=== PATIENT | male | born 2000 | race Hispanic/Latino ===

== ENCOUNTER 2019-11-30 18:17 | Emergency (ER) | payer BC, MEDICAID ==
[2019-11-30 18:31] VITALS: TEMP 98.4; O2SAT 98
[2019-11-30] MEDS ORDERED: KETOROLAC TROMETHAMINE INJ 30 MG/ML VIAL IV ONE (18:32)
--- NOTE | 2019-11-30 18:33 | ED.PDOC ---
History of Present Illness - General Chief Complaint: Abdominal Pain Stated Complaint: left upper abdominal pain Time Seen by Provider: 11/30/19 18:18 Information Source: patient, RN notes reviewed, Vital Signs reviewed, old records Exam Limitations: no limitations - History of Present Illness Initial Comments: 19 yo M comes in with LUQ abdominal pain x 2 days. States it started when he was running. Worse with movement. no pain with deep breaths, no cough. Has not tried anything for pain. no n/v/d. no dysuria or back pain. Review of Systems - Review of Systems Constitutional: Denies: chills, fever EENTM: Denies: blurred vision, ear discharge Respiratory: Denies: cough, short of breath Cardiology: Denies: chest pain, palpitations Gastrointestinal/Abdominal: States: abdominal pain. Denies: constipation, diarrhea, nausea, vomiting Genitourinary: Denies: discharge, frequency Musculoskeletal: Denies: back pain, joint pain, muscle pain, neck pain Skin: Denies: rash Neurological: Denies: headache, numbness, paresthesia Endocrine: Denies: unexplained weight gain, unexplained weight loss Hematologic/Lymphatic: Denies: blood clots, easy bleeding, easy bruising Past Medical History (General) - Patient Medical History Hx Seizures: No Hx Stroke: No Hx Dementia: No Hx Asthma: No Hx of COPD: No Hx Cardiac Disorders: No Hx Congestive Heart Failure: No Hx Pacemaker: No Hx Hypertension: No Hx Thyroid Disease: No Hx Diabetes: No Hx Gastroesophageal Reflux: No Hx Renal Disease: No Hx Cancer: No Hx of HIV: No Hx Hepatitis B: No Hx Hepatitis C: No Hx MRSA: No Hx Other PMH: No Surgical History: appendectomy, tonsillectomy - Vaccination History Hx Influenza Vaccination: No - Social History Hx Tobacco Use: Yes - vapes Family Medical History - Family History Father Family History: Unknown Living Status: Unknown Physical Exam - Physical Exam General Appearance: Alert, Comfortable, No apparent distress, Well Developed, Well Groomed, Well Hydrated, Well Nourished Eyes, Ears, Nose, Throat Exam: PERRL/EOMI, normal ENT inspection, TMs normal Neck: non-tender, full range of motion, supple, normal inspection Respiratory: chest non-tender, lungs clear, normal breath sounds, no respiratory distress, no accessory muscle use Cardiovascular/Chest: normal peripheral pulses, regular rate, rhythm, no edema, no gallop, no JVD, no murmur Peripheral Pulses: 2+ Gastrointestinal/Abdominal: normal bowel sounds, non tender, soft, no organomegaly, no pulsatile mass Rectal Exam: deferred Back Exam: normal inspection, no CVA tenderness, no vertebral tenderness Extremity: normal range of motion, non-tender, normal inspection, no pedal edema, no calf tenderness, normal capillary refill Neurologic: geriatrician II-XII nml as tested, no motor/sensory deficits, alert, normal mood/affect, oriented x 3 Skin Exam: normal color, warm/dry Special Observations: No evidence of discomfort, Using mobile device Progress - Progress Progress: 11/30/19 18:35 partial ddx: gastritis, muscle strain, pancreatitis. Will get blood work. VSS. Will give IV toradol. 11/30/19 19:[address] showed: SLIGHT INCREASED DENSITY WITHIN THE CALYCEAL SYSTEM BILATERALLY PERHAPS SUGGESTING EARLY STONE FORMATION. NO DEFINITIVE EVIDENCE FOR NEPHROLITHIASIS AND/OR HYDRONEPHROSIS. Patient is aware of these findings. - Results/Orders Results/Orders: 11/30/19 19:07 Abdoment/Pelvis w/o Contrast [CT] Stat Laboratory Results WBC 8.2 K/mm3 (4.8-10.8) 11/30/19 18:45 RBC 5.28 M/mm3 (4.70-6.10) 11/30/19 18:45 Hgb 16.1 gm/dL (14.0-18.0) 11/30/19 18:45 Hct 47.1 % (42.0-52.0) 11/30/19 18:45 MCV 89.1 fl (80.0-94.0) 11/30/19 18:45 MCH 30.5 pg (27.0-31.0) 11/30/19 18:45 MCHC 34.2 g/dL (33.0-37.0) 11/30/19 18:45 RDW 12.7 % (11.5-14.5) 11/30/19 18:45 Plt Count 292 K/mm3 (130-400) 11/30/19 18:45 MPV 8.3 fl (7.40-10.4) 11/30/19 18:45 Absolute Neuts (auto) 4.10 K/uL (1.8-6.8) 11/30/19 18:45 Absolute Lymphs (auto) 3.10 K/uL (1.0-3.4) 11/30/19 18:45 Absolute Monos (auto) 0.70 K/uL (0.2-0.8) 11/30/19 18:45 Absolute Eos (auto) 0.20 K/uL (0.0-0.4) 11/30/19 18:45 Absolute Basos (auto) 0.10 K/uL (0.0-0.1) 11/30/19 18:45 Neutrophils % 50.3 % (42.0-78.0) 11/30/19 18:45 Lymphocytes % 37.5 % (20.0-50.0) 11/30/19 18:45 Monocytes % 9.1 % (2.0-9.0) H 11/30/19 18:45 Eosinophils % 2.4 % (1.0-5.0) 11/30/19 18:45 Basophils % 0.7 % (0.0-2.0) 11/30/19 18:45 Sodium 139 mmol/L (135-145) 11/30/19 18:45 Potassium 4.1 mmol/L (3.6-5.0) 11/30/19 18:45 Chloride 102 mmol/L (101-111) 11/30/19 18:45 Carbon Dioxide 29 mmol/L (21-31) 11/30/19 18:45 Anion Gap 12.1 (12-18) 11/30/19 18:45 BUN 20 mg/dL (7-18) H 11/30/19 18:45 Creatinine 1.21 mg/dL (0.6-1.3) 11/30/19 18:45 BUN/Creatinine Ratio 16.5 (10-20) 11/30/19 18:45 Random Glucose 93 mg/dL (70-105) 11/30/19 18:45 Serum Osmolality 279.8 mOsm/L (275-295) 11/30/19 18:45 Calcium 9.3 mg/dL (8.4-10.2) 11/30/19 18:45 Total Bilirubin 0.7 mg/dL (0.2-1.0) 11/30/19 18:45 AST 34 IU/L (10-42) 11/30/19 18:45 ALT 28 IU/L (10-60) 11/30/19 18:45 Alkaline Phosphatase 51 IU/L (42-121) 11/30/19 18:45 Serum Total Protein 7.4 gm/dL (6.4-8.2) 11/30/19 18:45 Albumin 4.8 g/dl (3.2-5.5) 11/30/19 18:45 Globulin 2.6 gm/dL (2.3-3.5) 11/30/19 18:45 Albumin/Globulin Ratio 1.8 (1.1-1.9) 11/30/19 18:45 Lipase 30 U/L (22-51) 11/30/19 18:45 Urine Color Yellow (Yellow) 11/30/19 18:48 Urine Appearance Clear (Clear) 11/30/19 18:48 Urine pH 7.5 (4.5-7.8) 11/30/19 18:48 Ur Specific [place] 1.020 (1.005-1.030) 11/30/19 18:48 Urine Protein Negative mg/dL 11/30/19 18:48 Urine Glucose (UA) Negative mg/dL (Negative) 11/30/19 18:48 Urine Ketones Negative mg/dL (NEGATIVE) 11/30/19 18:48 Urine Blood Trace-intact (Negative) H 11/30/19 18:48 Urine Nitrite Negative 11/30/19 18:48 Urine Bilirubin Negative (NEGATIVE) 11/30/19 18:48 Urine Urobilinogen 0.2 mg/dL (0.2-1.0) 11/30/19 18:48 Ur Leukocyte Esterase Negative (Negative) 11/30/19 18:48 Urine RBC 0-1 /hpf 11/30/19 18:48 Urine WBC 0 /hpf 11/30/19 18:48 Ur Epithelial Cells 0-1 /hpf 11/30/19 18:48 Amorphous Sediment 1+ 11/30/19 18:48 Urine Bacteria 0 11/30/19 18:48 Urine Mucus Trace 11/30/19 18:48 The data reviewed when caring for this patient included: nurse notes, prior records, etc. The history and assessments from nurses notes were reviewed and considered, and the patient's home medication list was also reviewed and considered. My assessment and the results of testing completed here in the ED were discussed with the patient/family. All questions were answered, and they express understanding of my assessment and the plan. They have been instructed to return if their symptoms worsen, and have been asked to follow up with their primary care physician to recheck today's presenting complaint. Strict return precautions given. I have reviewed medication, benefits, alternatives and side effects. Patient decided to proceed with medication. Candi Burton DO #801 - EKG/XRAY/CT CT: abd/pelvis without contrast: no acute pathology Departure - Departure Clinical Impression: Muscle strain Abdominal pain Qualifiers: Abdominal location: left upper quadrant Qualified Code(s): R10.12 - Left upper quadrant pain Time of Disposition: 19:29 Disposition: Discharge to Home or Self Care Departure Forms: ED Discharge - Pt. Copy, Patient Portal Self Enrollment Instructions: DI for Abdominal Pain-Adult, Abdominal Muscle Strain Diet: resume usual diet Activity: increase activity as tolerated Prescriptions: Cyclobenzaprine HCl [Flexeril] 5 mg PO TID PRN #12 tab PRN Reason: Muscle Spasms Ibuprofen 800 mg PO TID PRN #30 tab PRN Reason: Pain Home Medications: Ambulatory Orders Cyclobenzaprine HCl [Flexeril] 5 mg PO TID PRN #12 tab 11/30/19 Ibuprofen 800 mg PO TID PRN #30 tab 11/30/19 Additional Instructions: Magnesium oxide 400mg daily as needed for muscle pain (over the counter in vitamin section)
--- NOTE | 2019-11-30 19:35 | CT ---
EXAM DESCRIPTION: Abdoment/Pelvis w/o Contrast 11/30/2019 7:30 PM CDT CLINICAL HISTORY: 19 years, Male, left upper quad/flank pain COMPARISON: None. PROCEDURE: Multiple transaxial tomograms of the abdomen and pelvis were performed from the lung bases to the symphysis pubis, without administration of IV and oral contrast. Multiplanar reformats in the sagittal and coronal plane were generated and reviewed. An individualized dose optimization technique, Automated Exposure Control, was utilized for the performed procedure. FINDINGS: The lack of IV and oral contrast limits evaluation of solid organs, subtle lesions cannot be excluded. The lung bases demonstrate to be clear. Grossly the unopacified liver, gallbladder, pancreas, spleen and adrenal glands demonstrate to be within normal limits, no significant focal lesions were identified. There is no biliary duct dilatation The kidneys demonstrate grossly unremarkable. Noted is the presence of increased density within the calyceal system of the mid lower pole right kidney and minimally lower pole on left kidney perhaps ingesting the possibility of early stone formation. No definitive calculi is identified in either kidney. No focal masses were demonstrated. The ureters displays normal appearance with normal caliber, no hydroureter was seen. Grossly the unopacified stomach, small bowel and large bowel demonstrate to be within normal limits. Fecal residue and underdistention of the large bowel limits the evaluation. There is no evidence for bowel dilatation and/or free air. The appendix was not visualized although no significant inflammatory changes are noted within the right lower quadrant. The urinary bladder demonstrate to be within normal limits. The prostate gland demonstrate to be within normal limits. Single benign calcification within the posterior aspect of the right prosthetic correspond most likely to a phlebolith. The aorta demonstrate to be within normal limits. There is no retroperitoneal lymphadenopathy. There is no evidence for ascites. The rest of the soft tissue demonstrate to be grossly unremarkable. IMPRESSION: SLIGHT INCREASED DENSITY WITHIN THE CALYCEAL SYSTEM BILATERALLY PERHAPS SUGGESTING EARLY STONE FORMATION. NO DEFINITIVE EVIDENCE FOR NEPHROLITHIASIS AND/OR HYDRONEPHROSIS. Electronically signed by: Michael Talavera MD 11/30/2019 7:33 PM CDT
[2019-11-30] MEDS ORDERED: CYCLOBENZAPRINE TAB (ER DISP) 10 MG TAB PO ONE (19:38)
[2019-11-30 19:51] VITALS: BP 124/72
== END 2019-11-30 19:51 | disposition home or self-care (01) ==
LOC: ER 18:17
DX: T14.8XXA Other injury of unspecified body region, initial encounter (principal); R10.12 Left upper quadrant pain; F17.290 Nicotine dependence, other tobacco product, uncomplicated; X58.XXXA Exposure to other specified factors, initial encounter; Y92.9 Unspecified place or not applicable
CPT/HCPCS: 36415; 74176; 80053; 81001; 83690; 85025; J1885

== ENCOUNTER 2019-12-23 22:16 | Emergency (ER) | payer BC ==
[2019-12-23] MEDS ORDERED: LIDOCAINE 1% 10 ML VIAL INJ ONE ×2 (22:39→23:32)
--- NOTE | 2019-12-23 22:42 | ED.PDOC ---
History of Present Illness - General Time Seen by Provider: 12/23/19 22:39 Additional Information: Patient is a 19-year-old male who presents to the ED with chief complaint of right index finger injury. Patient was bench pressing a heavy weight which she lost control of. As he brought the weight back into the rack somehow his finger got caught between the bar and the rack and he injured his index finger. There are no other injuries. Patient rates the pain as severe. - History of Present Illness Allergies/Adverse Reactions: Allergies NO KNOWN ALLERGY Allergy (Verified 11/30/19 18:31) Home Medications: Ambulatory Orders Acetaminophen W/ Codeine [Tylenol W/ CODEINE #3] 1 ea PO Q6H PRN #20 12/24/19 Amoxicillin & Pot Clavulanate [Augmentin Tab] 875 mg PO BID #20 tab 12/24/19 Ibuprofen 800 mg PO Q8H PRN #20 tab 12/24/19 Review of Systems - Review of Systems Constitutional: Denies: chills, fever Respiratory: Denies: cough, short of breath Cardiology: Denies: chest pain, palpitations Gastrointestinal/Abdominal: Denies: abdominal pain Musculoskeletal: States: see HPI All other Systems: Reviewed and Negative Past Medical History (General) - Patient Medical History Hx Seizures: No Hx Stroke: No Hx Dementia: No Hx Asthma: No Hx of COPD: No Hx Cardiac Disorders: No Hx Congestive Heart Failure: No Hx Pacemaker: No Hx Hypertension: No Hx Thyroid Disease: No Hx Diabetes: No Hx Gastroesophageal Reflux: No Hx Renal Disease: No Hx Cancer: No Hx of HIV: No Hx Hepatitis C: No Hx MRSA: No Surgical History: appendectomy, tonsillectomy - Vaccination History Hx Tetanus, Diphtheria Vaccination: No Hx Influenza Vaccination: No Hx Pneumococcal Vaccination: No - Social History Hx Tobacco Use: No Hx Chewing Tobacco Use: No Hx Alcohol Use: Yes Hx Substance Use: No Hx Substance Use Treatment: No Hx Depression: No Feels Threatened In Home Enviroment: No Feels Threatened In a Relationship: No Hx Physical Abuse: No Hx Emotional Abuse: No Hx Suspected Abuse: No - Female History Patient is a Female of Child Bearing Age (10 -59 yrs old): No - Triage Comment ED Triage Comment: The patient walked under his own power while holding his right hand. He had obvious trauma to his right index finger. The crush/laceration was at the end of the finger nail with tissue undernearh exposed and minor bleeding noted. The patient rated his pain a 10 on the pain scale and had no other obvious signs of injury noted and no other complaints at the time of assessment. Family Medical History - Family History Father Family History: Unknown Living Status: Unknown Physical Exam - Physical Exam General Appearance: Anxious, Obvious distress, Well Developed, Well Nourished Hand Exam: laceration - There is a semicircular laceration around the base of the right index finger nail such that the nail with surrounding skin is able to be lifted off of the finger at its most proximal aspect. Normal sensation to light touch radial and ulnar aspects of finger. Progress - Progress Progress: 12/24/19 00:18 Patient with tuft fracture to the right index finger associated with a 270 degree semicircular laceration around the nailbed. Wound closed with good cosmetic results and Augmentin given in the ED. I have emphasized to patient absolute need for him to continue with antibiotics as prescribed to ensure that he does not develop infection to the finger. I will give referral to a hand doctor. Vital signs stable, patient is NAD and looks clinically well and I believe is safe for discharge with outpatient follow-up. Follow-up instructions, discharge instructions and return to ED precautions discussed with patient. Patient voices understanding and willingness to comply with instructions. All radiographic results have been discussed with the patient, and all questions answered. Patient is happy with plan. Procedures - Laceration/Wound Repair Right Finger Wound Length (cm): 3 Wound's Depth, Shape: flap, nail-avulsed Wound Explored: clean Irrigated w/ Saline (cc's): 100 Betadine Prep?: Yes Anesthesia: 1% Lidocaine Volume Anesthetic (cc's): 15 Wound Repaired With: sutures Suture Size/Type: 4:0 Number of Sutures: 8 Splint Applied?: Yes - metal foam finger splint Progress: Pt tolerated procedure well. Departure - Departure Clinical Impression: Open fracture of tuft of distal phalanx of finger Laceration of finger of right hand Qualifiers: Encounter type: initial encounter Finger: index finger Damage to nail status: without damage Foreign body presence: without foreign body Qualified Code(s): S61.210A - Laceration without foreign body of right index finger without damage to nail, initial encounter Time of Disposition: 00:21 Disposition: Discharge to Home or Self Care Condition: Good Instructions: Laceration Repair, Finger Fracture (DC) Referrals: Gurdeep Interiano MD [Active Staff] - 1-2 Days Prescriptions: Amoxicillin & Pot Clavulanate [Augmentin Tab] 875 mg PO BID #20 tab Ibuprofen 800 mg PO Q8H PRN #20 tab PRN Reason: Pain Acetaminophen W/ Codeine [Tylenol W/ CODEINE #3] 1 ea PO Q6H PRN #20 PRN Reason: Pain Home Medications: Ambulatory Orders Acetaminophen W/ Codeine [Tylenol W/ CODEINE #3] 1 ea PO Q6H PRN #20 12/24/19 Amoxicillin & Pot Clavulanate [Augmentin Tab] 875 mg PO BID #20 tab 12/24/19 Ibuprofen 800 mg PO Q8H PRN #20 tab 12/24/19
--- NOTE | 2019-12-23 23:27 | RAD ---
EXAM DESCRIPTION: Fingers,Right CLINICAL HISTORY: 19 years Male trauma COMPARISON: None FINDINGS: 3 views of the right fingers. Displaced second distal phalangeal tuft fracture. Soft tissue swelling adjacent to the fracture site. No radiopaque foreign bodies. IMPRESSION: Displaced second distal phalangeal tuft fracture. Electronically signed by: Kaylee Lewis MD 12/23/2019 11:25 PM [facility]
[2019-12-24] MEDS ORDERED: HYDROcodone 10MG/APAP 325MG 1 EA TAB PO ONE (00:08)
[2019-12-24] MEDS ORDERED: HYDROcodone 10MG/APAP 325MG 1 EA TAB ONE (00:08)
[2019-12-24] MEDS ORDERED: AMOXICILLIN & POT CLAVULANATE 875 MG TAB PO ONE (00:14)
[2019-12-24] MEDS ORDERED: NEOMYCIN-BACITRACIN-POLYMYXIN 0.9 GM UD TOP ONE ×2 (00:14→00:29)
[2019-12-24 00:24] VITALS: BP 135/102; TEMP 97.2; O2SAT 98
== END 2019-12-24 00:32 | disposition home or self-care (01) ==
LOC: ER 22:16
DX: S62.630A Displaced fracture of distal phalanx of right index finger, initial encounter for closed fracture (principal); W23.0XXA Caught, crushed, jammed, or pinched between moving objects, initial encounter; Y93.B3 Activity, free weights; Y92.9 Unspecified place or not applicable